=== PATIENT | male | born 1980 | race Caucasian/White ===

== ENCOUNTER → 2018-05-25 13:30 | Outpatient (CLI) | payer OTHER, SELFPAY ==
[2018-05-25 13:48] LABS: Basophils # 0.1 K/mm3 (0-0.2); Basophils % 0.8 % (0.1-2.0); Eosinophils # 0.3 K/mm3 (0.0-0.4); Eosinophils % 3.8 % (0.1-12.0); Hematocrit 50.4 % (42.0-52.0); Hemoglobin 16.3 g/dL (14.1-18.0); Lymphocytes # 1.5 K/mm3 (0.7-4.5); Lymphocytes % 21.9 % (10-50); Mean Corpuscular HGB Conc 32.3 g/dL (31.8-35.4); Mean Corpuscular Hemoglobin 32.9 pg (27.0-31.2); Mean Corpuscular Volume 101.8 fl (80-94); Mean Platelet Volume 7.3 fl (7.4-10.4); Monocytes # 0.4 K/mm3 (0.1-1.0); Monocytes % 5.7 % (1.7-9.3); Neutrophils # 4.5 K/mm3 (1.8-7.8); Platelet Count 286 K/mm3 (142-424); Red Blood Count 4.95 M/mm3 (4.60-6.20); Red Cell Distribution Width 13.1 % (11.5-17.5); White Blood Count 6.7 K/mm3 (4.8-10.8)
[2018-05-25 14:36] LABS: Alanine Aminotransferase 128 U/L (12-78); Albumin Level 4.7 gm/dL (3.4-5.0); Albumin/Globulin Ratio 1.5 (1.1-1.8); Alkaline Phosphatase 56 U/L (46-116); Anion Gap 13.5 mEq/L (5-15); Aspartate Amino Transferase 82 U/L (15-37); Bilirubin,Total 0.5 mg/dL (0.2-1.0); Blood Urea Nitrogen 8 mg/dL (7-18); Calcium 9.6 mg/dL (8.5-10.1); Carbon Dioxide 31 mmol/L (21.0-32.0); Chloride 103 mmol/L (98-107); Chol/HDL Ratio 2.3 (1-3.5); Cholesterol 201 mg/dL (140-200); Creatinine,Serum 0.81 mg/dL (0.70-1.30); Estimated Glomerular Filt Rate 108 ml/min (>60); Free T4 (Free Thyroxine) 0.82 ng/dl (0.76-1.46); GFR (African American) 130 ML/MIN (>60); Globulin 3.2 gm/dl (1.3-3.2); Glucose 96 mg/dL (74-106); HDL Cholesterol 87 mg/dL (27-67); LDL Cholesterol 96 mg/dL (0-130); Potassium 4.5 mmoL/L (3.5-5.1); Sodium 143 mmol/L (136-145); Thyroid Stimulating Hormone 1.24 uIU/ml (0.358-3.740); Total Protein,Serum 7.9 gm/dL (6.4-8.2); Triglycerides 89 mg/dL (30-200); VLDL Cholesterol 18 mg/dL (0-40)
[2018-05-25 14:59] LABS: Hemoglobin A1C 5.3 % (0.0-7.0)
[2018-05-26 10:59] LABS: Vitamin D 25 Hydroxy 14.1 ng/mL (30.0-100.0)
[2018-05-27 11:12] LABS: Hep A Ab, IgM Negative (Negative); Hepatitis B Core Antibody IgM Negative (Negative); Hepatitis B Surface Antigen Negative (Negative)
[2018-05-29 09:34] LABS: Folate 10.5 ng/mL (>3.0); Hepatitis C Antibody <0.1 s/co ratio (0.0-0.9); Vitamin B12 518 pg/mL (232-1245)
== END ==
PROVIDERS: Visit Provider Physician Assistant
DX: I10 Essential (primary) hypertension (principal); R53.83 Other fatigue; F32.9 Major depressive disorder, single episode, unspecified; E55.9 Vitamin D deficiency, unspecified; E11.9 Type 2 diabetes mellitus without complications; D53.9 Nutritional anemia, unspecified
CPT/HCPCS: 80053; 80061; 80074; 82607; 82652; 82746; 83036; 84439; 84443; 85025

== ENCOUNTER → 2018-07-31 17:57 | Outpatient (CLI) | payer OTHER, SELFPAY ==
[2018-07-31 18:51] LABS: Amphetamine/Metha Screen,Urine Negative ng/mL (<1000); Barbiturates Screen,Urine Negative ng/mL (<200); Benzodiazepines Screen,Urine Positive ng/mL (<200); Cannabinoid Screen,Urine Negative ng/mL (<50); Cocaine Screen,Urine Negative ng/mL (<300); Methadone Screen,Urine Negative ng/mL (<300); Opiate Screen,Urine Negative ng/mL (<300); Phencyclidine Screen,Urine Negative ng/mL (<25)
== END ==
PROVIDERS: Visit Provider Physician Assistant
DX: Z79.899 Other long term (current) drug therapy (principal)
CPT/HCPCS: 80305

== ENCOUNTER → 2019-09-17 12:31 | Outpatient (CLI) | payer OTHER, SELFPAY ==
--- NOTE | 2019-09-17 12:37 | XR_ITS ---
PROCEDURE: XR ANKLE LT MIN 3V CLINICAL INDICATION: Ankle Injury Posttraumatic pain the posttraumatic pain COMPARISON: No exams were available for comparison FINDINGS: No fracture, dislocation, lytic change, or blastic change evident. No significant degenerative change. Small bone island is present in the distal tibia IMPRESSION: No acute findings. Dictated by: Chino Cisneros MD 09/17/2019 16:05 Electronically signed by Chino Cisneros MD in [place] 09/17/2019 16:05
== END ==
PROVIDERS: PCP Emergency Medicine; Visit Provider Emergency Medicine
DX: Z02.6 Encounter for examination for insurance purposes (principal); S99.912A Unspecified injury of left ankle, initial encounter
CPT/HCPCS: 73610

== ENCOUNTER → 2020-09-16 14:40 | Outpatient (CLI) | payer BC, SELFPAY ==
[2020-09-16 15:23] LABS: Basophils % 0.3 % (0.1-2.0); Eosinophils # 0.2 K/mm3 (0.0-0.4); Eosinophils % 1.7 % (0.1-12.0); Hematocrit 45.1 % (42.0-52.0); Hemoglobin 14.8 g/dL (14.1-18.0); Lymphocytes # 2.5 K/mm3 (0.7-4.5); Lymphocytes % 24.4 % (10-50); Mean Corpuscular HGB Conc 32.9 g/dL (31.8-35.4); Mean Corpuscular Hemoglobin 33.1 pg (27.0-31.2); Mean Corpuscular Volume 100.8 fl (80-94); Mean Platelet Volume 7.4 fl (7.4-10.4); Monocytes # 0.6 K/mm3 (0.1-1.0); Monocytes % 5.8 % (1.7-9.3); Neutrophils % 67.8 % (37.0-80.0); Platelet Count 235 K/mm3 (142-424); Red Blood Count 4.47 M/mm3 (4.60-6.20); White Blood Count 10.3 K/mm3 (4.8-10.8)
[2020-09-16 15:49] LABS: Monoscreen (Rapid) Negative (Negative)
--- NOTE | 2020-09-16 16:04 | XR_ITS ---
PROCEDURE: XR CHEST PORTABLE CLINICAL HISTORY: COVID OUTPATIENT COMPARISON: No exams were available for comparison FINDINGS: The cardiomediastinal silhouette and pulmonary vascularity are within normal limits. The lungs are clear without infiltrates, suspicious nodules, or pleural effusions. No acute bony abnormalities. IMPRESSION: No acute findings. Dictated by: Chino Cisneros MD 09/16/2020 16:57 Chino Cisneros MD in [place] 09/16/2020 16:57
== END ==
PROVIDERS: PCP Physician Assistant; Visit Provider Physician Assistant
DX: Z20.822 Contact with and (suspected) exposure to COVID-19 (principal)
CPT/HCPCS: 36415; 71045; 85025; 86318; U0003

== ENCOUNTER → 2021-01-19 11:26 | Outpatient (CLI) | payer BC, SELFPAY | PROVIDERS: PCP Physician Assistant; Visit Provider Physician Assistant | DX: Z20.822 Contact with and (suspected) exposure to COVID-19 (principal) | CPT/HCPCS: U0003 ==

== ENCOUNTER → 2022-03-03 17:41 | Outpatient (CLI) | payer BC, SELFPAY ==
[2022-03-03 17:28] LABS: Adenovirus,PCR Not Detected (NotDetected); Bordetella Pertussis Not Detected (NotDetected); Chlamydophila Pneumoniae, PCR Not Detected (NotDetected); Coronavirus 19, PCR Not Detected (NotDetected); Coronavirus 229E Not Detected (NotDetected); Coronavirus NL63 Not Detected (NotDetected); Coronavirus OC43 Not Detected (NotDetected); Coronovirus HKU1,PCR Not Detected (NotDetected); Human Metapneumovirus Not Detected (NotDetected); Influenza A, PCR Not Detected (NotDetected); Influenza AH1, 2009 Not Detected (NotDetected); Influenza AH1, PCR Not Detected (NotDetected); Influenza AH3,PCR Not Detected (NotDetected); Influenza B, PCR Not Detected (NotDetected); Mycoplasma Pneumoniae, PCR Not Detected (NotDetected); Parainfluenza 1, PCR Not Detected (NotDetected); Parainfluenza 2, PCR Not Detected (NotDetected); Parainfluenza 3, PCR Not Detected (NotDetected); Parainfluenza 4, PCR Not Detected (NotDetected); Respiratory Syncytial Virus Not Detected (NotDetected); Rhinovirus/Enterovirus Not Detected (NotDetected)
[2022-03-03 17:49] LABS: Anion Gap 12.8 mEq/L (5-15); Blood Urea Nitrogen 8 mg/dl (9-20); Calcium 8.9 mg/dl (8.4-10.2); Carbon Dioxide 27 mmol/L (22.0-30.0); Chloride 101 mmol/L (98-107); Estimated Glomerular Filt Rate 108 ml/min (>60); GFR (African American) 130 ML/MIN (>60); Glucose 82 mg/dl (74-100); Potassium 3.8 mmoL/L (3.5-5.1); Sodium 137 mmol/L (136-145)
== END ==
PROVIDERS: Nurse Practitioner Family; PCP Physician Assistant; Visit Provider Physician Assistant
DX: Z20.822 Contact with and (suspected) exposure to COVID-19 (principal); R11.2 Nausea with vomiting, unspecified; R50.9 Fever, unspecified; R05.9 Cough, unspecified; R19.7 Diarrhea, unspecified
CPT/HCPCS: 80048; 87581; 87632; 87798; C9803; U0003; U0005

== ENCOUNTER → 2022-12-01 11:39 | Outpatient (CLI) | payer BC, SELFPAY ==
[2022-12-01 18:36] LABS: Adenovirus,PCR Not Detected (NotDetected); Bordetella Pertussis Not Detected (NotDetected); Chlamydophila Pneumoniae, PCR Not Detected (NotDetected); Coronavirus 19, PCR Not Detected (NotDetected); Coronavirus 229E Not Detected (NotDetected); Coronavirus NL63 Not Detected (NotDetected); Coronavirus OC43 Not Detected (NotDetected); Coronovirus HKU1,PCR Not Detected (NotDetected); Human Metapneumovirus Not Detected (NotDetected); Influenza A, PCR Not Detected (NotDetected); Influenza AH1, 2009 Not Detected (NotDetected); Influenza AH1, PCR Not Detected (NotDetected); Influenza AH3,PCR Not Detected (NotDetected); Influenza B, PCR Not Detected (NotDetected); Mycoplasma Pneumoniae, PCR Not Detected (NotDetected); Parainfluenza 1, PCR Not Detected (NotDetected); Parainfluenza 2, PCR Not Detected (NotDetected); Parainfluenza 3, PCR Not Detected (NotDetected); Parainfluenza 4, PCR Not Detected (NotDetected); Respiratory Syncytial Virus Not Detected (NotDetected); Rhinovirus/Enterovirus Not Detected (NotDetected)
== END ==
LOC: LAB.DROPOF 12-02 07:12
PROVIDERS: PCP Nurse Practitioner Family; Visit Provider Nurse Practitioner Family
DX: R11.2 Nausea with vomiting, unspecified (principal)
CPT/HCPCS: 87581; 87632; 87798; C9803; U0003; U0005

== ENCOUNTER → 2023-05-10 09:22 | Outpatient (CLI) | payer SELFPAY | PROVIDERS: PCP Nurse Practitioner Family; Visit Provider Student in an Organized Health Care Education/Training Program | DX: Z20.822 Contact with and (suspected) exposure to COVID-19 (principal) | CPT/HCPCS: 87635 ==

== ENCOUNTER 2023-07-04 23:28 | Outpatient (CLI) | payer BC, SELFPAY ==
[2023-07-04 18:25] LABS: Basophils % 0.4 % (0.1-2.0); Eosinophils # 0.1 K/mm3 (0.0-0.4); Eosinophils % 2.1 % (0.1-12.0); Hematocrit 48.3 % (42.0-52.0); Hemoglobin 16.1 g/dL (14.1-18.0); Lymphocytes # 1.2 K/mm3 (0.7-4.5); Lymphocytes % 23.4 % (10-50); Mean Corpuscular HGB Conc 33.3 g/dL (31.8-35.4); Mean Corpuscular Hemoglobin 33.9 pg (27.0-31.2); Mean Corpuscular Volume 101.9 fl (80-94); Mean Platelet Volume 8.4 fl (7.4-10.4); Monocytes # 0.4 K/mm3 (0.1-1.0); Monocytes % 8.7 % (1.7-9.3); Neutrophils # 3.3 K/mm3 (1.8-7.8); Neutrophils % 65.3 % (37.0-80.0); Platelet Count 270 K/mm3 (142-424); Red Blood Count 4.74 M/mm3 (4.60-6.20); Red Cell Distribution Width 12.7 % (11.5-17.5)
[2023-07-04 18:36] LABS: Alanine Aminotransferase 55 U/L (12-78); Albumin Level 4.3 g/dl (3.5-5.0); Albumin/Globulin Ratio 1.8 (1.1-1.8); Alkaline Phosphatase 63 U/L (38-126); Anion Gap 6.2 mEq/L (5-15); Aspartate Amino Transferase 81 U/L (17-59); Bilirubin,Total 1.2 mg/dl (0.2-1.3); Blood Urea Nitrogen 9 mg/dl (9-20); Calcium 8.9 mg/dl (8.4-10.2); Carbon Dioxide 31 mmol/L (22.0-30.0); Chloride 103 mmol/L (98-107); Chol/HDL Ratio 1.6 (1-3.5); Cholesterol 142 mg/dl (140-200); Creatine Kinase 45 U/L (55-170); Estimated Glomerular Filt Rate 148 ml/min (>60); GFR (African American) 180 ML/MIN (>60); Globulin 2.4 g/dL (1.3-3.2); Glucose 104 mg/dl (74-100); HDL Cholesterol 87 mg/dl (40-60); Potassium 4.2 mmoL/L (3.5-5.1); Sodium 136 mmol/L (136-145); Total Protein,Serum 6.7 g/dl (6.3-8.2); Triglycerides 67 mg/dl (30-150); VLDL Cholesterol 13 mg/dL (0-40)
== END 2023-07-04 23:59 ==
LOC: LAB.DROPOF 23:29
PROVIDERS: PCP Nurse Practitioner Family; Visit Provider Student in an Organized Health Care Education/Training Program
DX: R39.9 Unspecified symptoms and signs involving the genitourinary system (principal); Z13.29 Encounter for screening for other suspected endocrine disorder
CPT/HCPCS: 80053; 80061; 82550; 84443; 85025

== ENCOUNTER 2023-07-11 09:09 | Outpatient (CLI) | payer BC, SELFPAY ==
--- NOTE | 2023-07-11 09:09 | US_ITS ---
FINAL REPORT CLINICAL HISTORY: bilirubinuria, elevated AST COMPARISON: None FINDINGS: Sonographic images of the right upper quadrant were obtained. The pancreas is obscured by overlying bowel gas.The liver has an unremarkable appearance. The gallbladder appears partially contracted with nonspecific wall thickening present. There is no evidence of biliary ductal dilatation.The common duct measures 2 mm. Limited images of the right kidney are unremarkable. IMPRESSION: Gallbladder is partially contracted with nonspecific wall thickening present. No stones or sludge are seen. Reviewed, Interpreted and Dictated by Benji Alarcon III, MD Transcribed by Emmy Crowley Authenticated and [facility]
== END 2023-07-11 23:59 ==
LOC: RAD 09:09
PROVIDERS: PCP Nurse Practitioner Family; Visit Provider Student in an Organized Health Care Education/Training Program
DX: R74.01 Elevation of levels of liver transaminase levels (principal); R82.2 Biliuria
CPT/HCPCS: 76705

== ENCOUNTER 2023-07-18 08:12 | Outpatient (CLI) | payer BC, SELFPAY ==
--- NOTE | 2023-07-18 08:13 | NM_ITS ---
FINAL REPORT CLINICAL HISTORY: abnormal RUQ US, thickening of GB wall 8:30am 8.65 mci tc choletec 1.6 mcg cck no pain with cck COMPARISON: None FINDINGS: Sequential anterior projection images of the abdomen were obtained after the intravenous injection of 8.65 mCi technetium 99m Choletec. There is normal uptake of radiotracer by the liver. The bile ducts are visualized by 5 minutes. Gallbladder activity is seen by 20 minutes. Bowel activity is noted by 5 minutes. After 1 hour, 1.6 ?g of CCK was injected intravenously for calculation of gallbladder ejection fraction. The gallbladder ejection fraction is 41%, which is mildly depressed. IMPRESSION: No evidence of cystic duct or bile duct obstruction. Mildly depressed gallbladder ejection fraction of 41%. Reviewed, Interpreted and Dictated by Christopher Agudelo MD Transcribed by Emmy Crowley Authenticated and [facility]
[2023-07-18] MEDS: SINCALIDE 1.6 MCG in 0.9 % SODIUM CHLORIDE 50 ML 100 MCG IV (10:09)
[2023-07-18] MEDS: SODIUM CHLORIDE 0.9% 10ML SYR (RAD ONLY) 10 ML IV (10:09)
[2023-07-18] MEDS: ISOTOPE CHOLETECH;1 DOSE (UP TO 15 MCI) IV (10:09)
== END 2023-07-18 23:59 ==
PROVIDERS: PCP Nurse Practitioner Family; Visit Provider Student in an Organized Health Care Education/Training Program
DX: K82.8 Other specified diseases of gallbladder (principal)
CPT/HCPCS: 78227; A9537; J2805

== ENCOUNTER 2024-05-18 09:35 | Outpatient (CLI) | payer BC, SELFPAY ==
[2024-05-18 17:44] LABS: Coronavirus 19, PCR Not Detected (NotDetected); Influenza A, PCR Not Detected (NotDetected); Influenza B, PCR Not Detected (NotDetected)
== END 2024-05-18 23:59 | disposition home or self-care (01) ==
LOC: LAB.DROPOF 05-21 09:35
PROVIDERS: PCP Student in an Organized Health Care Education/Training Program; Visit Provider Student in an Organized Health Care Education/Training Program
DX: R09.81 Nasal congestion (principal)
CPT/HCPCS: 87636

== ENCOUNTER 2024-06-07 14:49 | Outpatient (CLI) | payer BC, SELFPAY ==
[2024-06-07 14:52] LABS: Adenovirus F 40/41, stool Not Detected (NotDetected); Astrovirus Not Detected (NotDetected); Campylobacter Not Detected (NotDetected); Clostridium Difficile A/B, PCR Not Detected (NotDetected); Cryptosporidium Not Detected (NotDetected); Cyclospora Cayetanesis Not Detected (NotDetected); Entamoeba histolytica Not Detected (NotDetected); Enteroaggregative E coli Not Detected (NotDetected); Enteropathogenic E coli Not Detected (NotDetected); Enterotoxigenic E coli Not Detected (NotDetected); Giardia lamblia Not Detected (NotDetected); Norovirus Not Detected (NotDetected); Plesimonas Shigalloides, PCR Not Detected (NotDetected); Rotavirus A Not Detected (NotDetected); Salmonella, PCR Not Detected (NotDetected); Sapovirus Not Detected (NotDetected); Shiga-like toxin E coli Not Detected (NotDetected); Shigella Enterovasive E coli Not Detected (NotDetected); Vibrio Cholerae Not Detected (NotDetected); Vibrio, PCR Not Detected (NotDetected); Yersinia Entercolitica, PCR Not Detected (NotDetected)
== END 2024-06-07 23:59 | disposition home or self-care (01) ==
LOC: LAB 14:49
PROVIDERS: PCP Physician Assistant; Visit Provider Student in an Organized Health Care Education/Training Program
DX: B34.9 Viral infection, unspecified (principal)
CPT/HCPCS: 87506

== ENCOUNTER 2024-07-27 12:25 | Emergency (ER) | payer BC, SELFPAY ==
[2024-07-27 14:15] VITALS: BP 145/86; PULSE 123; RESP 19; TEMP 37.3; O2SAT 98; BMI 27.2
--- NOTE | 2024-07-27 14:32 | ED_ITS ---
Discharge Plan Disposition Patient Disposition: Home, Self-Care Condition: Good Prescriptions Prescriptions: New oseltamivir [Tamiflu] 75 mg capsule 75 mg PO BID 5 Days Qty: 10 0RF ondansetron 4 mg Tablet,Disintegrating 4 mg PO Q8H PRN (Reason: Nausea) Qty: 12 0RF kvtfgjlzzedipdj-tuoeiumne-HB [Bromfed DM] 2-30-10 mg/5 mL Syrup 5 ml PO Q6H PRN (Reason: Cough) Qty: 240 0RF No Action amoxicillin 500 mg capsule 500 mg PO TID Patient Comments: TAKE 1 CAPSULE BY MOUTH THREE TIMES DAILY UNTIL GONE valacyclovir 1 gram tablet 1,000 mg PO BID Patient Comments: TAKE 1 TABLET BY MOUTH TWICE DAILY NEEDED FOR FEVER BLISTERS Referrals Follow up/Referrals: Maggie Rodgers PA [Primary Care Provider] - See instructions Activity Restrictions/Add. Instructions Additional Instructions/Restrictions: Drink plenty of fluids. Take tylenol or ibuprofen for pain or fever. Take the medications as directed. Follow up with your regular doctor. GO TO THE ER FOR ANY WORSENING SYMPTOMS Clinical Impressions Clinical Impression: Influenza A Stand Alone Forms Stand Alone Forms: Work/School Release Instructions Patient Instructions: Influenza, DI for Influenza -- Adult, Ondansetron, Oseltamivir Print Language Print Language: Setswana Discharge ED Provider: Jovani Jones [facility] General Stated complaint: chills, sore throat, weakness, B/A, H/A, Mode of Arrival: Ambulatory Source of Information: Patient Limitations: No Limitations Time Seen by Provider: 07/27/24 14:32 Description of Symptoms (Recalled from Triage Doc. by RN): PATIENT C/O CHILLS, SORE THROAT, LUNG PAIN, BODY ACHES, AND WEAKNESS THAT STARTED YESTERDAY AFTERNOON HEENT Symptoms (Recalled from RN notes): Yes Resp Symptoms (Recalled from RN notes): No Skin Symptoms (Recalled from RN notes): No MS Symptoms (Recalled from RN notes): No Functional Status (Recalled from RN notes): WNL Related Data Home Medications ?Medication ?Instructions ?Recorded ?Confirmed amoxicillin 500 mg capsule 500 mg PO TID 07/27/24 07/27/24 valacyclovir 1 gram tablet 1,000 mg PO BID 07/27/24 07/27/24 Previous Rx's ?Medication ?Instructions ?Recorded yfymgmvplknrdaz-fdzviwgyvazmius-UA 5 ml PO Q6H PRN Cough #240 mL 07/27/24 2 mg-30 mg-10 mg/5 mL oral syrup (Bromfed DM) ondansetron 4 mg disintegrating 4 mg PO Q8H PRN Nausea #12 tabs 07/27/24 tablet oseltamivir 75 mg capsule (Tamiflu) 75 mg PO BID 5 days #10 caps 07/27/24 Allergies Allergy/AdvReac Type Severity Reaction Status Date / Time amoxicillin (From Augmentin) Allergy Intermediate Rash Verified 06/07/24 10:41 clavulanic acid (From Allergy Intermediate Rash Verified 06/07/24 10:41 Augmentin) Worker's Comp Is this a Worker's Comp case?: No [facility] Disclaimer: The information contained in this section may have been updated after the patient was seen, as this information can be updated by other users. Medical History Depression HSV infection Vitamin D deficiency GERD (gastroesophageal reflux disease) Insomnia Autism Anxiety Surgical History No significant past surgical history Family History Other No significant family history Social History Smoking Status: Current every day smoker tobacco type: cigars alcohol intake: current alcohol intake frequency: a few times a week substance use type: denies use current occupational status: employed Travel in the last 8 weeks: None household members: family housing: house number of children: 2 Have you lived/traveled outside [place] in past 30 days?: No Contact w/someone who lives/traveled outside US past 30 days?: No Exposure to someone with infectious disease in past 14 days?: No Do you have a fever (greater than 100.4 F or 38 C)?: No Have you tested positive for COVID-19: No Exposed to someone with COVID-19 in past 14 days?: No Do you have a sore throat?: Yes Do you have a cough?: Yes Do you have any weakness?: Yes Do you have any diarrhea?: No Are you experiencing any unusual bleeding?: No Do you have any muscle aches/pain?: Yes Do you have any abdominal pain?: No Are you experiencing loss of taste or smell?: No ROS Obtained: Yes All systems reviewed & no additional complaints except as documented Constitutional Constitutional: Reports chills and Reports fever(s) Eyes Eyes: Denies eye discharge ENT Ears, Nose, Mouth, and Throat: Reports as per HPI Cardiovascular Cardiovascular: Denies chest pain Respiratory Respiratory: Denies chest congestion and Reports cough Gastrointestinal Gastrointestingal: Reports nausea; Denies abdominal pain, constipation, cramping, diarrhea or vomiting Musculoskeletal Musculoskeletal: Denies arthralgias Integumentary/Breasts Skin/Breast: Denies rash Neurologic Neurologic: Denies paresthesias Physical Exam General General appearance: alert and in no apparent distress Head Head exam: atraumatic, normocephalic and normal inspection Eye Eye exam: Present normal appearance, PERRL and EOMI ENT ENT exam: Present normal exam, normal oropharynx, mucous membranes moist, TM's normal bilaterally and normal external ear exam Neck Neck exam: Present normal inspection, full ROM and trachea midline; Absent meningismus or lymphadenopathy Chest Chest inspection: Present normal inspection and symmetric chest wall rise; Absent tenderness Respiratory Respiratory exam: Present normal lung sounds bilaterally; Absent respiratory distress Cardiovascular Cardiovascular exam: Present regular rate and normal rhythm; Absent JVD Abdominal Exam Abdominal exam: Present soft and normal bowel sounds; Absent distention, tenderness or guarding Extremities Exam Extremities exam: Present normal inspection, full ROM and normal capillary refill; Absent calf tenderness Back Exam Back exam: Present normal inspection; Absent tenderness Neurological Exam Neurological exam: Present alert and oriented X3 Psychiatric Psychiatric exam: Present normal affect and normal mood Skin Skin exam: Present warm, dry, intact and normal color Lymphatic Lymphatic Findings: no adenopathy Medical Decision Making Medical Records Medical records reviewed: No I reviewed the patient's medical records. Screening: Per USPSTF and CDC recommendations, given the prevalence of disease in our region, it is our hospital?s policy to screen for HIV and viral Hepatitis for all patients aged 18 and over and those with ongoing risk factors. Doroteo Inquiry Pt receiving controlled substance: No Vital Signs: 07/27/24 14:15 Temperature 99.2 F Temperature Source Oral Pulse Rate [Left Brachial] 123 H Respiratory Rate 19 Blood Pressure [Left Arm] 145/86 H Blood Pressure Mean [Left Arm] 105 Blood Pressure Source [Left Arm] Automatic Cuff Blood Pressure Position [Left Arm] Sitting 02 Sat by Pulse Oximetry 98 Oxygen Delivery Method Room Air Lab Data Lab results reviewed: Yes I reviewed the patient's lab results.
[2024-07-27 14:36] LABS: UTC Influenza A Antigen Positive (Negative)
[2024-07-27 14:37] LABS: UTC Influenza B Antigen Negative (Negative)
[2024-07-27 14:49] VITALS: BP 145/86; PULSE 123; RESP 19; TEMP 37.3; O2SAT 98
== END 2024-07-27 14:51 | disposition home or self-care (01) ==
PROVIDERS: Emergency Provider Nurse Practitioner Family; PCP Physician Assistant
DX: J10.1 Influenza due to other identified influenza virus with other respiratory manifestations (principal)
CPT/HCPCS: 87804; 99213; G0381

== ENCOUNTER 2024-08-30 14:16 | Outpatient (CLI) | payer BC, SELFPAY ==
[2024-08-30 15:23] LABS: Coronavirus 19, PCR Not Detected (NotDetected); Human Rhinovirus Not Detected (NotDetected); Influenza A, PCR Not Detected (NotDetected); Influenza B, PCR Not Detected (NotDetected); Respiratory Syncytial Virus Not Detected (NotDetected)
== END 2024-08-30 23:59 | disposition home or self-care (01) ==
LOC: LAB.DROPOF 09-03 14:17
PROVIDERS: PCP Physician Assistant; Visit Provider Nurse Practitioner
DX: B34.9 Viral infection, unspecified (principal)
CPT/HCPCS: 87631

== ENCOUNTER 2025-04-25 13:40 | Emergency (ER) | payer OTHER, SELFPAY ==
[2025-04-25 13:44] VITALS: BP 125/82; PULSE 92; RESP 20; TEMP 36.6; O2SAT 99; BMI 25.1
[2025-04-25 13:57] VITALS: O2SAT 97
--- NOTE | 2025-04-25 13:58 | PC.NURSE ---
Pt awake alert and oriented Skin pink warm and dry Resp full and easy Speech clear and appropriate. Report given to Monae DEL ROSARIO Pt ambulatory to room Gait steady
--- OUTSIDE RECORDS SUMMARY | 2025-04-25 14:12 | XMS_ITS | Clinical Summary ---
Author Organization [facility] Address [facility] [place] [address] Phone Care Team Providers Care Display Decorator Name Role Phone Unavailable Primary Care Provider Unavailabl e Allergies No known active allergies Medications * This document contains information received from the source organization and may not represent a complete record from that organization. vilazodone (VIIBRYD) 40 mg Oral Tablet Take 20 mg by mouth daily. Active QUEtiapine (SEROQUEL) 25 mg Oral Tablet Take 25 mg by mouth every evening. Active lamoTRIgine (LAMICTAL) 25 mg Oral Tablet Take 25 mg by mouth 2 times daily. Active ranitidine (ZANTAC) 150 mg Oral Tablet Take 150 mg by mouth daily. Active valACYclovir (VALTREX) 1 gram Oral Tablet Take 1 mg by mouth 2 times daily. Active cholecalciferol, vitamin D3, 1,000 unit Oral Tablet Take 1 Tab by mouth daily. Active escitalopram oxalate (LEXAPRO) 20 mg Oral Tablet Take 20 mg by mouth daily. Active diazePAM (VALIUM) 10 mg Oral Tablet Take 10 mg by mouth 2 times daily as needed. Active Active Problems Problem Noted Date Diagnosed Date EtOH dependence 05/29/2019 Autism 05/29/2019 Medical History Medical History Date Comments Autistic disorder Social History Tobacco Use Types Packs/Day Years Used Date Smoking Tobacco: Former Smokeless Tobacco: Former Alcohol Use Standard Drinks/Week Comments Yes 0 (1 standard drink = 0.6 oz pur e alcohol) 3-3.5 8 oz of wine Sex and Gender Information Value Date Recorded Sex Assigned at Not on file Legal Sex Male 10:55 PM EDT Gender Identity Not on file Sexual Orientation Not on file Last Filed Vital Signs Vital Sign Reading Time Taken Comments Blood Pressure 142/78 01/19/2022 4:45 AM EDT Pulse 84 01/19/2022 4:45 AM EDT Temperature 36.6 C (97.8 F) 01/19/2022 2:20 AM EDT Respiratory Rate 20 01/19/2022 4:45 AM EDT Oxygen Saturation 100% 01/19/2022 4:45 AM EDT Inhaled Oxygen Concentration - - Weight 79.4 kg (175 lb) 01/18/2022 11:36 PM EDT Height 180.3 cm (5' 11 ) 01/18/2022 11:36 PM EDT Body Mass Index 24.41 01/18/2022 11:36 PM EDT Plan of Treatment Health Maintenance Due Date Last Done Comments Annual Wellness Exam 1985 DTaP/TDaP/Td (1 - Tdap) 2001 Hepatitis B Vaccine (1 of 3 - 19+ 3-dose series) 2001 Pneumococcal Vaccine 0-49 (1 of 2 - PCV) 2001 COVID-19 Vaccine (1 - 2024-2 6 season) 2025 Influenza Vaccine (#1) 2025 Meningococcal B Vaccine Aged Out No l onger eligible based on patient's age to complete this topic Insurance [place] [address] MEDICAID
--- OUTSIDE RECORDS SUMMARY | 2025-04-25 14:12 | XMS_ITS | Data Portability ---
Author Organization [facility] Address [address] [place] [address] Assessment No assessment recorded. Plan of Treatment Reminders Order Date Submit Date Provider Last Modified By Organization Details Last Modified Time Details Appointments None recorded. Lab None recorded. Referral None recorded. Procedures None recorded. Surgeries None recorded. Imaging None recorded. Medication Orders ketoconazol e 2 % shampoo 2024 025 [facility], [address], [address], 08:31:35 Valtrex 1 gram tablet 2023 024 [facility], [address], [address], 14:05:41 Patient TargetsNo targets recorded. Patient Instructions Encounter Date Encounter Id Patient Instructions Last Modified By Organization Details Last Modified Time 08/30/2024 [id number] seborrheic dermatitis: care instructions [id number] Not available 08/30/2024 08:31:30 Reason for Referral None Reported. Problems Name Problem SNOMED Code Status Onset Date Resolution Date Notes Provider Name and Address Organization Details Recorded Time Recurrent herpes simplex labialis 863029217 Active 2023 JEEVAN Moseley [address] [place] [address], [phone], [place] [employer] 4 14:04:19 Generalized anxiety disorder 81691999 Active 2023 JEEVAN Moseley [address] [place] [address], [phone], [employer] 4 14:24:08 Asperger's disorder 62987948 Active 2023 Maggie Rodgers [address], [phone], [employer] 4 14:24:15 Seborrheic dermatitis 41883551 Active 2024 JEEVAN Moseley [address] [place] [address], [phone], [employer] 5 08:31:02 Problem Notes None recorded. Medical Equipment None Reported. Allergies Allergen ID Allergen Name Allergen Category Reaction Reaction Severity Criticality Documentation Date Start Date Code Code System Note Provider Name and Address Organization Details Recorded Time 23664 Augmentin medicatio n rash Not available Not available 04/05/2024 35371 2 RxNorm Jose[facility], [employer] 4 13:48:42 Medications Name Sig Start Date Stop Date Status Note LastModified by Organization Details LastModified Time amoxicillin 500 mg capsule TAKE 1 CAPSULE BY MOUTH THREE TIMES DAILY UNTIL GONE 08/30 completed Not Available Not Available Not Available ketoconazol e 2 % shampoo APPLY TO AFFECETED AREAS LATHER LEAVE IN PLACE FOR 15 MINUTES AND THEN RINSE OFF WITH WATER DO ONCE DAILY active Not Available Not Available No t Available valacyclovi r 1 gram tablet TAKE 1 TABLET BY MOUTH TWICE DAILY NEEDED FOR FEVER BLISTERS active Not Available Not Available No t Available dexamethaso ne 0.5 mg/5 mL oral solution RINSE AND HOLD 5-10 ML BY MOUTH 4 TIMES DAILY FOR TWO MINUTES, THEN SPIT 08/30 completed Not Available Not Available Not Available hydrocodone 7.5 mg-acetamin ophen 325 mg tablet TAKE 1 TABLET BY MOUTH EVERY 6 HOURS NEEDED FOR PAIN 08/30 completed Not Available Not Available Not Available oseltamivir 75 mg capsule TAKE ONE CAPSULE BY MOUTH TWICE DAILY FOR 5 DAYS 08/30 completed Not Available Not Available Not Available lidocaine HCl 2 % mucosal solution APPLY 2 ML TO AFFECTED AREA EVERY 4 HOURS NEEDED FOR PAIN 08/30 completed Not Available Not Available Not Available bromphenira mine-pseudo ephedrine-D M 2 mg-30 mg-10 mg/5 mL oral syrup TAKE 5ML BY MOUTH EVERY 6 HOURS NEEDED FOR COUGH 08/30 completed Not Available Not Available Not Available ondansetron 4 mg disintegrat ing tablet DISSOLVE 1 TABLET IN MOUTH EVERY 8 HOURS NEEDED FOR NAUSEA AND VOMITING active Not Available Not Available No t Available diazepam 5 mg tablet Take 1 tablet twice a day by oral route. active Not Available Not Available No t Available chlorhexidi ne gluconate 0.12 % mouthwash RINSE WITH 15ML FOR 2 MINUTES AND SPIT, USE TWICE DAILY. 08/30 completed Not Available Not Available Not Available valacyclovi r 04/05 completed Not Available Not Available Not Available Vitals Date Recorded Body height Body mass index (BMI) Body weight Heart rate Body temperature Oxygen saturation Oxygen saturation in Arterial blood by Pulse oximetry Systolic And Diastolic Provider Name and Address Organization Details Last Updated DateTime 5 180.34 cm 26.1 kg/m2 75063.2 1 g 90 /min 98.4 [degF] 97 % 97 % 128/86 mm[Hg] [employer] 5 08:12:18 Date Recorded Body weight Body mass index (BMI) Body height Heart rate Oxygen saturation Oxygen saturation in Arterial blood by Pulse oximetry Systolic And Diastolic Provider Name and Address Organization Details Last Updated DateTime 4 24541.1 1 g 26.4 kg/m2 180.34 cm 80 /min 97 % 97 % 109/73 mm[Hg] [employer] 4 13:47:21 Social History Question Answer Notes LastModified by Organizat ion Details LastModified Time Tobacco Smoking Status Former Smoker [employer] 04/05/2024 13:48:21 Do You Have An Advance Directive? No Information n ot available 04/05/2024 Is Your Home Air Conditioned? Yes Information not available 04/05/2024 Do You Wear A Helmet When Biking? No Information not available 04/05/2024 Are You Blind Or Do You Have Difficulty Seeing? No Information n ot available 04/05/2024 What Is Your Level Of Caffeine Consumption? Moderate Information not available 04/05/2024 What Type Of Oil Burner Technician Do You Use? None Information not available 04/05/2024 In The 14 Days Before Symptom Onset, Have You Had Close Contact With A Laboratory-confirm ed COVID-19 While That Case Was Ill? No Information n ot available 04/05/2024 In The 14 Days Before Symptom Onset, Have You Had Close Contact With A Person Who Is Under Investigation For COVID-19 While That Person Was Ill? No Information not available 04/05/2024 Have You Been To An Area Known To Be High Risk For COVID-19? No Information not available 04/05/2024 Are You Deaf Or Do You Have Serious Difficulty Hearing? No Information not available 04/05/2024 What Type Of Diet Are You Following? REGULAR Information n ot available 04/05/2024 Who Is Your Employer? [employer] Information not available 04/05/2024 How Many Days Of Moderate To Strenuous Exercise, Like A Brisk Walk, Did You Do In The Last 7 Days? 7 Information not available 04/05/2024 Have There Been Any Changes To Your Family Or Social Situation? Yes Information no t available 04/05/2024 When Did You Quit Smoking? 1-5yearssince lastcigarette Information not available 04/05/2024 Are There Any Guns Present In Your Home? Yes Information not available 04/05/2024 Which Of Your Hands Is Dominant? Bilateral Information n ot available 04/05/2024 What Is Your Home Situation? Other Information not available 04/05/2024 Do You Have A Medical Power Of Respite Worker? No Information not available 04/05/2024 What Was The Date Of Your Most Recent Tobacco Screening? 08/30/2024 Information not available 08/30/2024 Are There Any Occupational Health Risks Where You Work? Not Really Information not available 04/05/2024 What Is Your Current Pack Years? 10packyears Information not available 04/05/2024 Do You Have Any Pets? Yes Information not available 04/05/2024 Do You Use Protection During Sex? No Information not available 04/05/2024 What Is Your Relationship Status? Information not available 04/05/2024 Have You Repeated Any Grades? No Information not available 04/05/2024 Do You Use Your Seat Belt Or Car Seat Routinely? Yes Information not available 04/05/2024 Are You Sexually Active? Yes Information not available 04/05/2024 Do You Have Any Siblings? No Information not available 04/05/2024 Do You Have Smoke And Carbon Monoxide Detectors In Your Home? Yes Information not available 04/05/2024 At What Age Did You Start Smoking Tobacco? 18 Information not available 04/05/2024 Are You Passively Exposed To Smoke? No Information no t available 04/05/2024 Are There Any Smokers In Your House? No Information not available 04/05/2024 How Much Tobacco Do You Smoke? No Information not available 04/05/2024 Do You Participate In Social Media? Yes Information not available 08/30/2024 Do You Use Sunscreen Routinely? Yes Information not available 04/05/2024 Has Tobacco Cessation Counseling Been Provided? Yes Information not available 04/05/2024 On What Date Was Tobacco Cessation Counseling Provided? 08/30/2024 Information not available 08/30/2024 How Many Years Have You Smoked Tobacco? 10 Information not available 04/05/2024 Have You Recently Traveled Abroad? No Information not available 04/05/2024 Do You Have Difficulty Walking Or Climbing Stairs? No Information not available 04/05/2024 Are You Currently In School? No Information not available 04/05/2024 Do You Have Any Dietary Restrictions? No Information not available 04/05/2024 Sex: Male Functional Status Question Answer Note LastModified by Organizat ion Details LastModified Time Do you use any illicit or recreational drugs? No Information not available 04/05/2024 Do you or have you ever used any other forms of tobacco or nicotine? Yes Information not available 04/05/2024 What is your level of alcohol consumption? None Information not available 04/05/2024 Do you or have you ever used smokeless tobacco? Never used smokeless tobacco Information not available 04/05/2024 Are you currently employed? Yes Information not available 04/05/2024 Do you have transportation difficulties? No Information not available 08/30/2024 Are you able to walk independently without assistance or assistive devices? [employer] Information not available 04/05/2024 Do you have difficulty doing errands alone? No Information not available 04/05/2024 Are you able to care for yourself independently? Yes Information not available 04/05/2024 Do you have difficulty dressing, bathing, grooming, or toileting? No Information not available 04/05/2024 Do you or have you ever used e-cigarettes or vape? Current user of electronic cigarettes Information not available 04/05/2024 What is your exercise level? Moderate Information not available 04/05/2024 Mental Status Question Answer Note LastModified by Organizat ion Details LastModified Time Do you feel stressed (tense, restless, nervous, or anxious, or unable to sleep at night)? [id number] Information not available 08/30/2024 Do you have difficulty concentrating, remembering or making decisions? No Information no t available 04/05/2024 Are you or have you been involved with bullying? No Information not available 04/05/2024 Family History Relationship Description Onset Age of this Age Resolved Age Notes LastModified by Organization Details LastModified Time Father Diabetes mellitus Not available 2023 13:51:26 Paternal Grandmother Dementia Not available 04/05 13:51:39 Maternal Aunt Malignant neoplasm of breast Not available 2023 13:51:56 Medical History Condition Response Coronary Artery Disease N Other N Gout N Kidney Stones N Blood Diseases N Hyperthyroidism N Breast Cancer N Blood Transfusion N Emergency room visit since last appointm ent. N Hypothyroidism N Lung Disease N Dermatologic Disorders N Depression Y COPD N Developmental or Behavioral Disorders N Defects or Inherited Disease N Breast Problem N Difficulty Swallowing N Anesthesia Complications N History of STI N Anxiety Disorder Y Meniere's disease N Autoimmune disease N Muscle, Joint, or Bone Problems N Vision or Eye Problems N Arthritis N Infertility N Polyps N Mental Disorder N Congenital Anomalies N Acid Reflux (GERD) N Cancer N Stroke N Neurologic/Epilepsy N Endometriosis N Bladder or Kidney Problems N High Cholesterol N Liver Disease N Organ Transplant N Psychiatric/Mental Health Condition N Fibromyalgia N Headaches N Schizophrenia N Dialysis N Kidney Disease N Allergies/Hayfever N Heart Problems N Ear or Hearing Problems N Hospitalizations N Learning Disorder N Artificial Joints N Thyroid Problems N GI Problems N Acne N ADD/ADHD N Eating Disorder N Anemia N Constipation N Mental Illness N Ovarian Cancer N Diabetes N Bedwetting N Hepatitis/Liver Disease N Tuberculosis N Eczema N Diverticulitis N Abuse/Domestic Violence N Asthma N Trauma/Violence N Substance Abuse N Reflux/GERD N Depression/ depression N Hepatitis N Heart Disease N Pulmonary Embolism N Tourette Syndrome N Pre-Eclampsia N Hypertension N Chronic Ear Infections N Osteoporosis N Chicken Pox N Autism Spectrum Disorder (ASD) Y Thrombophilias N Immunizations Vaccine Type Date Status Note Provider Nam e and Address Organization Details Recorded Time Influenza, split virus, trivalent, PF 04/05/2024 completed JEEVAN Moseley [address] [place] [address], [phone], [facility] [employer] 04/05/2024 14:59:47 Tdap 04/05/2024 JEEVAN Bingham [address] [place] [address], [phone], [facility] [employer] 04/05/2024 14:59:47 Influenza, recombinant, quadrivalent, PF 04/08/2020 completed Josefina Vice null, [employer] 08/30/2024 08:08:16 Tdap 11/05/2014 completed Josefina Vice null, [employer] 08/30/2024 08:08:16 Influenza, split virus, quadrivalent, PF 05/03/2021 completed Josefina Vice null, [employer] 08/30/2024 08:08:16 Past Encounters Encounter ID Performer Location Encounter Start Date Encounter Closed Date Diagnosis/Indication Diagnosis SNOMED-CT Code Diagnosis ICD10 Code Diagnosis IMO Codes Diagnosis Note [id number] JEEVAN Moseley [address] [place] [address] [address] 04/05/2024 13:40:14 04/05/2024 15:02:53 Administration of influenza vaccine 19635980 Z23 Administra tion of diphtheria, pertussis, and tetanus vaccine 174944561 Z23 Recurrent herpes simplex labialis 479573006 B00.1 Generalize d anxiety disorder 88225826 F41.1 Asperger's disorder 2356 0001 F84.5 [id number] JEEVAN Moseley [facility] [address] [place] [address] 08/30/2024 07:55:22 08/30/2024 08:31:16 Seborrheic dermatitis 05277966 L21.9 Health Concerns Section Related Observation LastModified by Organization Detai ls LastModified Time None Recorded Concern Status LastModified by Organization Details LastModified Time None Recorded Advance Directives Directive N: Payers Insurance Date Sequence Insurance Name Policy Number Policy Garcia Covered Member ID Garcia Member ID Guarantor Name 10/09/2024 1 [place] [id number] Jeet [id number] Jeet Allen 10/09/2024 1 [place] [id number] Jeet Allen [id number] Jeet Allen Notes Date Note Type Note Provider Name and Address Organization Details Recorded Time 04/05/2024 text/html Patient presents to establish care.Patient has a history of AspergersHistory of anxietyHistory of herpes labialisJust found out that his girlfriend is expecting a baby JEEVAN Moseley [address] [place] [address], [phone], [employer] 04/05/2024 14:59:51 08/30/2024 text/html ROS as noted in the HPI Patient presents with flaky scalp and eyebrows as well as dinero. OTC meds have not helped. JEEVAN Moseley [address] [place] [address], [phone], [employer] 08/30/2024 11:14:59
--- NOTE | 2025-04-25 14:15 | ED_ITS ---
<Statement entered by Ming Alanis MD - 04/26/25 08:14> I was consulted by the GABRIELLE, and we discussed the complexity of the problems being addressed. I approve the treatment and management plan for this patient's care in the emergency department, thus performing a substantive portion of the medical decision making. Ming Alanis MD Discharge Plan Disposition Patient Disposition: Home, Self-Care Condition: Good Prescriptions Prescriptions: No Action diazepam 5 mg/mL concentrate 5 mg PO HS PRN valacyclovir 1 gram tablet 1,000 mg PO DAILY Referrals Follow up/Referrals: Maggie Rodgers PA [Primary Care Provider, Medical] - See instructions Activity Restrictions/Add. Instructions Additional Instructions/Restrictions: Please return to the emergency department with any worsening signs or symptoms. Please utilize [id number] cold and flu medications as needed for symptomatic relief. Please follow-up with your family doctor in the upcoming days/weeks. We will call you with any actionable results of your upper respiratory swab/radiology report/full x-ray results. No news is good news. Clinical Impressions Clinical Impression: Viral respiratory illness Instructions Patient Instructions: DI for Acute Bronchitis, DI for Viral Upper Respiratory Infection in Adults Print Language Print Language: Salvadorean Discharge ED Provider: Ming Alanis General Adult HPI <JEEVAN Dye - Last Filed: 04/25/25 15:36> General Chief complaint: Upper Respiratory Infection Stated complaint: pain in upper left chest, cough Time Seen by Provider: 04/25/25 13:55 Mode of Arrival: Ambulatory Source of Information: Patient Description of Symptoms (Recalled from ER Triage Doc. by RN): Pt states has 3 day history of cough and upper lung pain History of Present Illness HPI narrative: 44-year-old male presents the emergency department with productive cough congestion left-sided pleuritic chest pain has been ongoing for the last 3 days, he denies any recent URI or sick exposure, denies any fever or chills, denies any abdominal pain nausea vomiting constipation diarrhea, does admit to hematochezia, states my hemorrhoids are acting up , denies any diarrhea, last bowel movement this morning, denies any melena, denies any urinary type symptomatology, denies any trauma or injury per history, patient is a current smoker (vapes), denies any illicit drug use, does admit to current everyday alcohol use, patient states he drinks 5-7 hard ciders a night . Other past medical history is consistent with GERD, MDD, HSV, LISETTE. Initial triage vitals are unremarkable Please note that above description of symptoms, in this electronic medical record under categorization of recalled from ER triage doctor by RN are reflective of an initial nursing assessment, however, is not reflective of my full history and physical exam that was personally taken and clarified. Consequentially, this preceding description of symptoms, which may include the patient's categorized chief complaint in the EMR, do not reflect my personal clinical impression, and the ultimate description of history of present illness and patient stated complaints should be deferred to this section of the note. Unless stated otherwise or congruent with this section of the note, additional signs, symptoms, or incongruence should be interpreted as inaccurate with my clinical impression. Onset (ago): day(s) Related Data Home Medications ?Medication ?Instructions ?Recorded ?Confirmed diazepam 5 mg/mL oral concentrate 5 mg PO HS PRN 09/1309/13/24 valacyclovir 1 gram tablet 1,000 mg PO DAILY 09/13/24 09/13/24 Allergies Allergy/AdvReac Type Severity Reaction Status Date / Time amoxicillin (From Augmentin) Allergy Intermediate Rash Verified 09/13/24 11:40 clavulanic acid (From Allergy Intermediate Rash Verified 09/13/24 11:40 Augmentin) [facility] <JEEVAN Dye - Last Filed: 04/25/25 15:36> [facility] Disclaimer: The information contained in this section may have been updated after the patient was seen, as this information can be updated by other users. Medical History (Updated 04/25/25 @ 15:31 by JEEVAN Dye) Viral syndrome Viral syndrome Depression HSV infection Vitamin D deficiency GERD (gastroesophageal reflux disease) Insomnia Autism Anxiety Surgical History No significant past surgical history Family History Other No significant family history Social History Smoking Status: Current every day smoker tobacco type: cigars alcohol intake: current alcohol intake frequency: a few times a week substance use type: denies use current occupational status: employed Travel in the last 8 weeks?: None household members: family housing: house number of children: 2 Have you lived/traveled outside [place] in past 30 days?: No Contact w/someone who lives/traveled outside US past 30 days?: No Exposure to someone with infectious disease in past 14 days?: No Do you have a fever (greater than 100.4 F or 38 C)?: No Have you tested positive for COVID-19?: No Exposed to someone with COVID-19 in past 14 days?: No Do you have a sore throat?: No Do you have a cough?: Yes Do you have any weakness?: No Do you have any diarrhea?: No Are you experiencing any unusual bleeding?: No Do you have any muscle aches/pain?: No Do you have any abdominal pain?: No Are you experiencing loss of taste or smell?: No Other Medical History Have you received the Flu Vaccine for this season: No Have you received the Pneumonia Vaccine: No <JEEVAN Dye - Last Filed: 04/25/25 15:36> ROS Obtained: Yes All systems reviewed & no additional complaints except as documented Physical Exam <JEEVAN Dye - Last Filed: 04/25/25 15:36> General General appearance: alert and in no apparent distress Head Head exam: atraumatic and normocephalic Eye Eye exam: Present PERRL and EOMI ENT ENT exam: Present mucous membranes moist Neck Neck exam: Present normal inspection Chest Chest inspection: Present normal inspection and symmetric chest wall rise Respiratory Respiratory exam: Present normal lung sounds bilaterally; Absent respiratory distress, wheezes or stridor Cardiovascular Cardiovascular exam: Present regular rate and normal rhythm Abdominal Exam Abdominal exam: Present soft; Absent tenderness Extremities Exam Extremities exam: Present normal inspection Neurological Exam Neurological exam: Present alert and oriented X3 Psychiatric Psychiatric exam: Present normal affect Skin Skin exam: Present warm and dry Medical Decision Making <JEEVAN Dye - Last Filed: 04/25/25 15:36> Medical Records Medical records reviewed: Yes I reviewed the patient's medical records. Screening: Per USPSTF and CDC recommendations, given the prevalence of disease in our region, it is our hospital?s policy to screen for HIV and viral Hepatitis for all patients aged 18 and over and those with ongoing risk factors. Doroteo Inquiry Pt receiving controlled substance: No Doroteo was queried for this patient: No Vital Signs: 04/25/25 13:44 04/25/25 13:57 Temperature 97.8 F Temperature Source Oral Pulse Rate [Left Radial] 92 H Respiratory Rate 20 Blood Pressure [Right Arm] 125/82 Blood Pressure Mean [Right Arm] 96 Blood Pressure Source [Right Arm] Automatic Cuff Blood Pressure Position [Right Arm] Sitting 02 Sat by Pulse Oximetry 99 97 Oxygen Delivery Method Room Air Room Air Lab Data Lab results reviewed: Yes I reviewed the patient's lab results. Lab Results 04/25/25 14:30: WBC 10.8, RBC 5.11, Hgb 16.7, Hct 48.1, MCV 94.1 H, MCH 32.7 H, MCHC 34.7, RDW 12.1, Plt Count 339, MPV 9.1, Neut % (Auto) 65.9, Lymph % (Auto) 19.9, [place]ter % (Auto) 7.2, Eos % (Auto) 5.8, Baso % (Auto) 0.8, Neut # (Auto) 7.1, Lymph # (Auto) 2.1, Sum[place] # (Auto) 0.8, Eos # (Auto) 0.6 H, Baso # (Auto) 0.1, PT 11.9, INR 1.08, D-Dimer 0.42, Sodium 137, Potassium 4.9, Chloride 99, Carbon Dioxide 32 H, Anion Gap 10.9, BUN 8 L, Creatinine 0.80, Estimated Creat Clear 139, Estimated GFR 106, Est GFR ( Amer) 128, Glucose 106 H, Calcium 9.5, Magnesium 1.8, Total Bilirubin 0.9, AST 59, ALT 69, Alkaline Phosphatase 63, Troponin I < 0.01, NT-Pro-B Natriuret Pep < 20.0, Total Protein 8.2, Albumin 4.1, Globulin 4.1 H, Albumin/Globulin Ratio 1.0 L, Plasma/Serum Alcohol < 10 04/25/25 14:30 04/25/25 14:30 Orders (Tests/Meds): ORDERS Category Date Time Status XR chest portable Stat Exams 04/25/25 14:20 Completed Complete Blood Count Auto Diff Stat Lab 04/25/25 14:30 Completed Comprehensive Metabolic Panel Stat Lab 04/25/25 14:30 Completed D-Dimer Stat Lab 04/25/25 14:30 Completed Ethanol [Ethyl Alcohol] Stat Lab 04/25/25 14:30 Completed Full Resp Panel w/COVID ([facility]) Routine Lab 04/25/25 14:51 Received HIV Combo Routine Lab 04/25/25 14:30 Received Hepatitis C Ab Qual. W/ RFX Routine Lab 04/25/25 14:30 Received Magnesium Stat Lab 04/25/25 14:30 Completed NT Pro Brain Natriuretic Pep. Stat Lab 04/25/25 14:30 Completed PT INR [Prothrombin Time INR] Stat Lab 04/25/25 14:30 Completed Troponin I Q3H Lab 04/25/25 17:30 Ordered Troponin I Q3H Lab 04/25/25 20:30 Ordered Troponin I Stat Lab 04/25/25 14:30 Completed Medical Decision Narrative: 44-year-old male presents to the emergency department with 3-day history of cough congestion, left-sided pleuritic chest pain, differential diagnose include but not limited to, acute bronchitis, viral URI, costochondritis, PE, pneumonia, pleural effusion, pulmonary edema, among others. I discussed this patient's case with the attending physician Dr. Alanis Will obtain basic laboratory studies, chest x-ray, obtain, alcohol level, D- dimer, magnesium level, proBNP, PT/INR, troponin, full respiratory panel, and EKG. CMP is unremarkable CBC is unremarkable, Coags unremarkable Troponin is less than 0.01 proBNP within normal limits. D-dimer is less than 0.42, thus effectively ruling out VTE/PE. Plasma/serum alcohol level is less than 10. I along with the attending physician reviewed and independently interpreted the patient's chest x-ray, lungs are clear, no signs of consolidation, heart within normal limits, no pleural effusion. 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 Recommend [id number] cold and flu medication as needed for symptomatic relief patient most likely has acute bronchitis versus viral upper respiratory infection. Will call patient with any results that may be actionable. Patient was given strict ED return precautions follow-up with PCP in the upcoming days/weeks. Patient voiced understanding and agreement with the current treatment plan/discharge plan. Addendum performed at 3:35 PM, patient's radiology report of his chest x-ray resulted prior to discharge. I reviewed the patient's chest x-ray along with the corresponding radiologic report, no acute process <Ming Alanis MD - Last Filed: 04/25/25 14:33> Vital Signs: 04/25/25 13:44 04/25/25 13:57 Temperature 97.8 F Temperature Source Oral Pulse Rate [Left Radial] 92 H Respiratory Rate 20 Blood Pressure [Right Arm] 125/82 Blood Pressure Mean [Right Arm] 96 Blood Pressure Source [Right Arm] Automatic Cuff Blood Pressure Position [Right Arm] Sitting 02 Sat by Pulse Oximetry 99 97 Oxygen Delivery Method Room Air Room Air Lab Data Lab Results 04/25/25 14:30: WBC 10.8, RBC 5.11, Hgb 16.7, Hct 48.1, MCV 94.1 H, MCH 32.7 H, MCHC 34.7, RDW 12.1, Plt Count 339, MPV 9.1, Neut % (Auto) 65.9, Lymph % (Auto) 19.9, [place] % (Auto) 7.2, Eos % (Auto) 5.8, Baso % (Auto) 0.8, Neut # (Auto) 7.1, Lymph # (Auto) 2.1, [place] # (Auto) 0.8, Eos # (Auto) 0.6 H, Baso # (Auto) 0.1, PT 11.9, INR 1.08, D-Dimer 0.42, Sodium 137, Potassium 4.9, Chloride 99, Carbon Dioxide 32 H, Anion Gap 10.9, BUN 8 L, Creatinine 0.80, Estimated Creat Clear 139, Estimated GFR 106, Est GFR ( Amer) 128, Glucose 106 H, Calcium 9.5, Magnesium 1.8, Total Bilirubin 0.9, AST 59, ALT 69, Alkaline Phosphatase 63, Troponin I < 0.01, NT-Pro-B Natriuret Pep < 20.0, Total Protein 8.2, Albumin 4.1, Globulin 4.1 H, Albumin/Globulin Ratio 1.0 L, Plasma/Serum Alcohol < 10 Orders (Tests/Meds): ORDERS Category Date Time Status XR chest portable Stat Exams 04/25/25 14:20 Completed Complete Blood Count Auto Diff Stat Lab 04/25/25 14:30 Completed Comprehensive Metabolic Panel Stat Lab 04/25/25 14:30 Completed D-Dimer Stat Lab 04/25/25 14:30 Completed Ethanol [Ethyl Alcohol] Stat Lab 04/25/25 14:30 Completed Full Resp Panel w/COVID ([facility]) Routine Lab 04/25/25 14:51 Received HIV Combo Routine Lab 04/25/25 14:30 Received Hepatitis C Ab Qual. W/ RFX Routine Lab 04/25/25 14:30 Received Magnesium Stat Lab 04/25/25 14:30 Completed NT Pro Brain Natriuretic Pep. Stat Lab 04/25/25 14:30 Completed PT INR [Prothrombin Time INR] Stat Lab 04/25/25 14:30 Completed Troponin I Q3H Lab 04/25/25 17:30 Ordered Troponin I Q3H Lab 04/25/25 20:30 Ordered Troponin I Stat Lab 04/25/25 14:30 Completed ECG Data Tracing #1: I reviewed this ECG and interpreted as documented below: Normal sinus rhythm. J-point elevation but no ST elevation or depression. QTc normal 382 Critical Care <JEEVAN Dye - Last Filed: 04/25/25 15:36> Critical Care Time Critical Care Time: No
--- NOTE | 2025-04-25 14:20 | XR_ITS ---
FINAL REPORT CLINICAL HISTORY: SOA, left-sided pleuritic chest pain FINDINGS: SINGLE VIEW CHEST The heart is normal in size. The mediastinum is unremarkable. The lungs are clear. There is no pneumothorax. IMPRESSION: No acute process. Reviewed, Interpreted and Dictated by Christopher Agudelo MD Transcribed by Oralia Ruiz Authenticated and [facility]
--- NOTE | 2025-04-25 14:30 | ECG_ITS ---
APPROVED REPORT Exam: Resting ECG HR:77 bpm ECG Measurements Heart Rate 77 AXES WA 147 P 66 QRSd 81 QRS 65 QT 350 T 55 QTc 382 Conclusion SINUS RHYTHM NORMAL ECG UNCONFIRMED REPORT Normal sinus rhythm. No ST elevation or depression. QTc normal at 382 Electronically signed by : DELGADO LOWERY, 04/26/2025 13:51:16
[2025-04-25 14:44] LABS: Hematocrit 48.1 % (42.0-52.0); Hemoglobin 16.7 g/dL (14.1-18.0); Immature Granulocytes % 0.4 %; Mean Corpuscular HGB Conc 34.7 g/dL (31.8-35.4); Mean Corpuscular Hemoglobin 32.7 pg (27.0-31.2); Mean Corpuscular Volume 94.1 fl (80-94); Nucleated Red Blood Cells % 0 %; Platelet Count 339 K/mm3 (142-424); Red Blood Count 5.11 M/mm3 (4.60-6.20); Red Cell Distribution Width-SD 42.1 fL; White Blood Count 10.8 K/mm3 (4.8-10.8)
[2025-04-25 14:50] LABS: Alanine Aminotransferase 69 U/L (12-78); Albumin Level 4.1 g/dl (3.5-5.0); Albumin/Globulin Ratio 1.0 (1.1-1.8); Alkaline Phosphatase 63 U/L (38-126); Anion Gap 10.9 mEq/L (5-15); Aspartate Amino Transferase 59 U/L (17-59); Bilirubin,Total 0.9 mg/dl (0.2-1.3); Blood Urea Nitrogen 8 mg/dl (9-20); Calcium 9.5 mg/dl (8.4-10.2); Carbon Dioxide 32 mmol/L (22.0-30.0); Chloride 99 mmol/L (98-107); Creatinine Clearance Estimated 139 mL/min (50-200); Creatinine,Serum 0.80 mg/dl (0.66-1.25); Estimated Glomerular Filt Rate 106 ml/min (>60); GFR (African American) 128 ML/MIN (>60); Globulin 4.1 g/dL (1.3-3.2); Glucose 106 mg/dl (74-100); Magnesium 1.8 mg/dl (1.6-2.3); Potassium 4.9 mmoL/L (3.5-5.1); Sodium 137 mmol/L (136-145); Total Protein,Serum 8.2 g/dl (6.3-8.2)
[2025-04-25 14:51] LABS: INR 1.08 (0.9-1.1); Prothrombin Time 11.9 seconds (10.1-12.5)
[2025-04-25 14:56] LABS: Adenovirus,PCR Not Detected (NotDetected); Chlamydophila Pneumoniae, PCR Not Detected (NotDetected); Coronavirus 19, PCR Not Detected (NotDetected); Coronovirus HKU1,PCR Not Detected (NotDetected); Influenza A, PCR Not Detected (NotDetected); Influenza AH1, 2009 Not Detected (NotDetected); Influenza AH1, PCR Not Detected (NotDetected); Influenza AH3,PCR Not Detected (NotDetected); Influenza B, PCR Not Detected (NotDetected); Mycoplasma Pneumoniae, PCR Not Detected (NotDetected); Parainfluenza 1, PCR Not Detected (NotDetected); Parainfluenza 2, PCR Not Detected (NotDetected); Parainfluenza 3, PCR Not Detected (NotDetected); Parainfluenza 4, PCR Not Detected (NotDetected)
[2025-04-25 15:02] LABS: NT Pro Brain Natriuretic Pep. < 20.0 pg/mL (0-125); Troponin I < 0.01 ng/ml (0.00-0.034)
[2025-04-25 15:04] LABS: D-Dimer 0.42 ug/mL (0.0-0.5)
[2025-04-25 15:34] VITALS: BP 119/85; PULSE 88; RESP 16; TEMP 36.6; O2SAT 98
[2025-04-25 16:18] LABS: Hepatitis C Ab Qual. W/ RFX NEGATIVE (Negative)
== END 2025-04-25 15:40 | disposition home or self-care (01) ==
PROVIDERS: Physician Assistant; Emergency Provider Student in an Organized Health Care Education/Training Program; PCP Physician Assistant
DX: R07.89 Other chest pain (principal); J06.9 Acute upper respiratory infection, unspecified; B34.9 Viral infection, unspecified; F17.290 Nicotine dependence, other tobacco product, uncomplicated
CPT/HCPCS: 0223U; 71045; 80053; 80320; 83735; 83880; 84484; 85025; 85378; 85610; 86803; 87389; 93005; 99284

== ENCOUNTER 2025-06-16 18:00 | Outpatient (CLI) | payer OTHER, SELFPAY ==
[2025-06-16 20:51] LABS: Coronavirus 19, PCR Not Detected (NotDetected); Influenza A, PCR Not Detected (NotDetected); Influenza B, PCR Not Detected (NotDetected)
--- OUTSIDE RECORDS SUMMARY | 2025-06-17 10:52 | XMS_ITS | Clinical Summary ---
Author Organization [facility] Address [facility] [place] [id number] Phone Care Team Providers Care Tufter Operator Name Role Phone Unavailable Primary Care Provider [...] patient's age to complete this topic Insurance [address] [place] [address] MEDICAID
== END 2025-06-16 23:59 | disposition home or self-care (01) ==
LOC: LAB.DROPOF 06-17 10:48
PROVIDERS: PCP Physician Assistant; Visit Provider Nurse Practitioner
DX: J06.9 Acute upper respiratory infection, unspecified (principal)
CPT/HCPCS: 87631